=== PATIENT | female | born 1960 | race Caucasian/White ===

== ENCOUNTER 2023-09-10 11:09 | Emergency (ER) | payer OTHER, SELFPAY ==
[2023-09-10] VITALS (12 sets, daily range): BP systolic 119–141; BP diastolic 67–81; PULSE 53–71; RESP 18; TEMP 36.3; O2SAT 96–100; BMI 19.0
--- NOTE | 2023-09-10 11:37 | CRLHL7_ITS ---
For Patients: As a result of the Century Cures Act, medical imaging exams and procedure reports are released immediately into your electronic medical record. You may view this report before your referring provider. If you have questions, please contact your health care provider. CLINICAL HISTORY: Acute neurological deficit. TECHNIQUE: CTA neck with contrast bolus tracking. 3D angiographic rendering using maximum intensity projection (MIP) and images permanently archived. COMPARISON: None available. FINDINGS: The great vessels are patent. The common carotid arteries are patent. The proximal ICAs are patent without signficant stenoses by NASCET criteria. The more distal cervical ICAs are patent. The origins of the vertebral arteries are patent. The cervical segments of the vertebral arteries are patent. IMPRESSION: Patent cervical arterial vasculature without hemodynamically significant luminal stenosis. Please note that all CT scans at this facility use dose modulation, iterative reconstruction, and/or weight-based dosing when appropriate to reduce radiation dose to as low as reasonably achievable. Dictated by Stanley Metcalf MD @ 09/10/2023 1:47:13 PM (Electronically Signed)
--- NOTE | 2023-09-10 11:37 | CRLHL7_ITS ---
For Patients: As a result of the Century Cures Act, medical imaging exams and procedure reports are released immediately into your electronic medical record. You may view this report before your referring provider. If you have questions, please contact your health care provider. CLINICAL HISTORY: Acute neurological deficit. TECHNIQUE: CTA head with contrast bolus tracking. 3D angiographic rendering using maximum intensity projection (MIP) and images permanently archived. COMPARISON: None available. FINDINGS: The petrous, cavernous, and supraclinoid segments of the internal carotid arteries are patent. The anterior and middle cerebral arteries are patent. The anterior communicating artery is visualized and is within normal limits. The intracranial vertebral arteries, basilar trunk, and posterior cerebral arteries are patent. No intracranial proximal large vessel occlusion or flow-limiting luminal stenosis. No evidence of cerebral aneurysm. No findings to suggest an arterial-venous shunting lesion. The major dural venous sinuses and deep venous system are patent. IMPRESSION: No intracranial proximal large vessel occlusion, flow-limiting luminal stenosis, or cerebral aneurysm. Please note that all CT scans at this facility use dose modulation, iterative reconstruction, and/or weight-based dosing when appropriate to reduce radiation dose to as low as reasonably achievable. Dictated by Stanley Metcalf MD @ 09/10/2023 1:59:16 PM (Electronically Signed)
--- NOTE | 2023-09-10 11:54 | ED_ITS ---
HPI - General Adult General Date Seen: 09/10/23 Chief complaint: Headache/Migraine Stated complaint: Legs weak this am, headache Time Seen by Provider: 09/10/23 11:25 Source: patient Mode of arrival: ambulatory Limitations: no limitations History of Present Illness HPI narrative: patient is 63-year-old female with no pertinent medical problem presenting to the emergency department for a headache and bilateral leg weakness. She states she woke up this morning and tried to go to the bathroom and noticed her legs felt very weak and she needed to support herself against the wall to get to the bathroom. She then returned to her bed and she states weakness persisted for about 30 minutes to an all were in has now since completely resolved. She had no associated numbness at this time. She does states she was having word- finding issues. She states she typically does have word-finding problems but this was much worse than normal. At that time she also had a headache diffusely across her head. Now the headache is just behind the right eye which she says she has had before. She does states she has glaucoma but it is under control at this time. She went to urgent care and a CT scan of the head done which did show 1 concerning abnormality which they were not sure was artifact or not so was sent to us for a CTA. She states that this time symptoms have all fully resolved other than the improving headache. She states she believes the headache is most likely from her anxiety at this time. Denies fevers, chills, chest pain, shortness of breath, vision changes, abdominal pain. Related Data Home Medications Medication Instructions Recorded Confirmed No Known Home Medications 09/10/23 09/10/23 Allergies Allergy/AdvReac Type Severity Reaction Status Date / Time No Known Drug Allergies Allergy Verified 09/10/23 11:23 Review of Systems Status of ROS: Reports: 10 or more systems reviewed and unremarkable except as noted in History and below [facility] Social History Smoking Status: Former smoker How often do you have a drink containing alcohol: 4 or more times a week How many standard drinks containing alcohol do you have on a typical day: 3 or 4 How often do you have six or more drinks on one occasion: Less than monthly AUDIT-C Alcohol total score: 6 Non-prescribed substance use: marijuana (any form) Exam Narrative: Exam Narrative: Const: Well-nourished, Well-developed, in mild distress Eyes: PERRL, no conjunctival injection, and symmetrical lids HENT: Atraumatic external nose and ears. Moist mucous membranes. Neck: Symmetric, trachea midline, No thyromegaly. CVS: RRR, No murmurs or gallops. Peripheral pulses 2+ and equal in all extremities RESP: Unlabored respiratory effort. Clear to auscultation bilaterally. GI: Nontender/Nondistended, No rebound or guarding. MSK:Extremities w/o deformity, Normal Active ROM Skin: Warm, Dry. No rashes or lesions. Neuro: Normal Muscle tone, Cranial nerves 2-12 grossly intact, normal [id number], normal [id number], normal gait, normal strength 5/5 upper lower extremities bilaterally, normal sensation upper and lower extremities bilaterally, normal rapid alternating movements. NIH stroke scale 0 Psych: Awake, Alert, & Oriented x3. Appropriate mood and affect. Const: Vital Signs, click to edit/add: Vital Signs - 24 hr 09/10/23 11:20 09/10/23 11:59 09/10/23 12:00 Temperature 97.3 F L Pulse Rate 57 L 58 L Pulse Rate [Right Pulse Oximeter] 68 Respiratory Rate 18 Blood Pressure 126/67 Blood Pressure [Ri ght Upper Arm] 120/73 Pulse Oximetry 100 98 99 Oxygen Delivery Me thod Room Air 09/10/23 12:02 09/10/23 12:15 09/10/23 12:30 Temperature Pulse Rate 58 L 57 L 58 L Pulse Rate [Right Pulse Oximeter] Respiratory Rate Blood Pressure 131/73 Blood Pressure [Ri ght Upper Arm] Pulse Oximetry 97 98 99 Oxygen Delivery Me thod 09/10/23 12:32 09/10/23 12:45 09/10/23 13:00 Temperature Pulse Rate 63 71 59 L Pulse Rate [Right Pulse Oximeter] Respiratory Rate Blood Pressure 141/78 H Blood Pressure [Ri ght Upper Arm] Pulse Oximetry 98 96 97 Oxygen Delivery Me thod 09/10/23 13:02 09/10/23 13:15 Temperature Pulse Rate 59 L 53 L Pulse Rate [Right Pulse Oximeter] Respiratory Rate Blood Pressure 119/75 Blood Pressure [Ri ght Upper Arm] Pulse Oximetry 98 97 Oxygen Delivery Me thod Course Vital Signs Vital signs: Initial Vital Signs Temperature 97.3 F L 09/10/23 11:20 Temperature Source Temporal Artery Scan 09/10/23 11:20 Pulse Rate 68 09/10/23 11:20 Respiratory Rate 18 09/10/23 11:20 Blood Pressure 120/73 09/10/23 11:20 Blood Pressure Mean 88 09/10/23 11:20 Blood Pressure Position Sitting 09/10/23 11:20 Pulse Oximetry 100 09/10/23 11:20 Oxygen Delivery Method Room Air 09/10/23 11:20 Vital Signs Temperature 97.3 F L 09/10/23 11:20 Pulse Rate 68 09/10/23 11:20 Respiratory Rate 18 09/10/23 11:20 Blood Pressure 120/73 09/10/23 11:20 Pulse Oximetry 100 09/10/23 11:20 Oxygen Delivery Method Room Air 09/10/23 11:20 Temperature 97.3 F L 09/10/23 11:20 Pulse Rate 53 L 09/10/23 13:15 Respiratory Rate 18 09/10/23 11:20 Blood Pressure 119/75 09/10/23 13:02 Pulse Oximetry 97 09/10/23 13:15 Oxygen Delivery Method Room Air 09/10/23 11:20 Medications Administered Medications: Discontinued Medications Generic Name Dose Route Start Last Admin Trade Name Freq PRN Reason Stop Dose Admin Diphenhydramine HCl 25 mg 09/10/23 11:37 09/10/23 12:41 Diphenhydramine 50 Mg/Ml Inj IVP 09/10/23 11:38 Not Given ONCE ONE Lactated Ringer's 1,000 mls @ 1,000 mls/hr 09/10/23 11:37 09/10/23 13:59 Lactated Ringers 1000 Ml IV 09/10/23 12:36 Infused .Q1H ONE Infusion Ketorolac Tromethamine 15 mg 09/10/23 11:37 09/10/23 12:21 Ketorolac 15 Mg/Ml Inj IVP 09/10/23 11:38 Not Given ONCE ONE Ketorolac Tromethamine 15 mg 09/10/23 14:06 09/10/23 14:24 Ketorolac 15 Mg/Ml Inj IVP 09/10/23 14:07 15 mg ONCE ONE Administration Loratadine 10 mg 09/10/23 12:36 09/10/23 13:34 Loratadine 10 Mg Tablet PO 09/10/23 12:37 10 mg ONCE ONE Administration Metoclopramide HCl 10 mg 09/10/23 11:58 09/10/23 12:23 Metoclopramide Hcl 5 Mg/Ml Inj IVP 09/10/23 11:59 10 mg ONCE ONE Administration Medical Decision Making MDM Narrative Medical decision making narrative: patient is 63 year old presenting to the emergency department for a headache and abnormal head CT after and short episode of leg weakness and some aphasia. The weakness has resolved and there was never any numbness. The headache is also improved. Her symptoms are concerning for possible TIA. I did review her records at the urgent care and they believed the lesion seems most likely artifact not definitively rule out other findings and recommended a CTA. Patient will be given a migraine cocktail for her headache. CTA results returns for no concerning abnormalities. I spoke to Dr. Potter of [facility] in with her symptoms he recommends MRI brain, cervical spine, lumbar spine. He states that these results are normal patient can be discharged home with outpatient follow-up. She was given Toradol for headache also and symptoms have all now fully resolved. MRI returned showing no concerning abnormalities. She is completely asymptomatic be discharged home. She agrees with this plan. Lab Data Labs: Lab Results 09/10/23 Range/Units 12:07 WBC 5.11 (4.50-11.00) K/uL RBC 4.00 (4.00-5.20) m/uL Hgb 11.8 L (12.0-16.0) gm/dL Hct 36.4 (33.0-51.0) % MCV 91 (80-100) fL MCH 30 (26-34) pg MCHC 32 (32-36) gm/dL RDW Coeff of Bharat 13.6 (11.5-15.5) % Plt Count 301 (140-440) K/uL Neut % (Auto) 53.2 (42.0-72.0) % Lymph % (Auto) 34.8 (20-44) % Alexander % (Auto) 10.2 (0.0-11.0) % Eos % (Auto) 1.0 (0.0-7.0) % Baso % (Auto) 0.6 (0.0-3.0) % Neut # (Auto) 2.72 (1.7-7.0) K/uL Lymph # (Auto) 1.78 (0.90-2.90) K/uL Alexander # (Auto) 0.50 (0.00-0.90) K/UL Eos # (Auto) 0.05 (0.00-0.50) K/uL Baso # (Auto) 0.03 (0.00-0.30) K/uL Abs Immat Gran (auto) 0.01 (0.00-0.30) K/uL Imm/Tot Granulo (auto) 0.2 % Sodium 136 (135-149) mmol/L Potassium 4.0 (3.6-5.1) mmol/L Chloride 102 (96-114) mmol/L Carbon Dioxide 29 (20-32) mmol/L Anion Gap 5 L (7-15) mEq/L BUN 15 (7-30) mg/dL Creatinine 0.5 (0.5-1.5) mg/dL Estimated Creat Clear 48.65 Estimated GFR 105 ml/min Glucose 105 (60-115) mg/dL Calcium 9.1 (8.4-10.6) mg/dL Magnesium 2.4 (1.5-2.6) mg/dL Total Bilirubin 0.6 (0.1-1.5) mg/dL AST 22 (12-35) U/L ALT 12 (4-35) U/L Alkaline Phosphatase 50 (40-150) U/L Troponin I < 0.01 L (0.01-0.04) ng/mL Total Protein 7.1 (6.0-8.3) g/dL Albumin 4.5 (3.3-5.0) g/dL Imaging Data CTA head: Radiologist's impression: No intracranial proximal large vessel occlusion, flow-limiting luminal stenosis, or cerebral aneurysm. Please note that all CT scans at this facility use dose modulation, iterative reconstruction, and/or weight-based dosing when appropriate to reduce radiation dose to as low as reasonably achievable. Dictated by Stanley Metcalf MD @ 09/10/2023 1:59:16 PM CTA neck: Radiologist's impression: Patent cervical arterial vasculature without hemodynamically significant luminal stenosis. Please note that all CT scans at this facility use dose modulation, iterative reconstruction, and/or weight-based dosing when appropriate to reduce radiation dose to as low as reasonably achievable. Dictated by Stanley Metcalf MD @ 09/10/2023 1:47:13 PM MRI brain: Radiologist's impression: 1. No acute intracranial abnormality. 2. Mild global parenchymal volume loss and chronic small vessel ischemic changes. 3. Scattered paranasal sinus mucosal thickening and small bilateral mastoid effusions. Dictated by Mike Arroyo MD @ 09/10/2023 4:55:49 PM MRI cervical spine: Radiologist's impression: 1. No high-grade spinal canal or neural foraminal stenosis. 2. Normal in signal intensity of the cervical spinal cord. 3. Multilevel intervertebral disc height loss most pronounced from C4-C7. 4. Mild bilateral C5-C6 and right C6-C7 neural foraminal narrowing. 5. Incidentally noted 4 mm left thyroid nodule and bilateral mastoid effusions. Dictated by Mike Arroyo MD @ 09/10/2023 4:51:43 PM MRI lumbar spine: Radiologist's impression: 1. S-shaped thoracolumbar scoliosis with lower lumbar spondylosis as detailed. 2. At L5-S1, anteriorly directed right facet joint synovial cyst encroaches upon the exiting right L5 nerve root without imaging evidence of impingement. Mild-moderate bilateral neural foraminal narrowing. 3. No significant spinal canal stenosis. No acute osseus abnormality. Dictated by Jasmin Fuentes MD @ 09/10/2023 4:54:48 PM ECG Data Attestation: I personally reviewed and interpreted this ECG as follows: Interpretation: Sinus bradycardia rate 55 beats per minute, normal intervals, normal axis, no ST or T-wave abnormalities Discharge Plan Discharge Clinical Impression: Headache Qualifiers: Headache type: unspecified Headache chronicity pattern: acute headache Intractability: not intractable Qualified Code(s): R51.9 - Headache, unspecified Patient Disposition: Home, Self-Care Condition: Improved Instructions: Acute Headache (DC) Additional Instructions: I am unsure why he developed the symptoms below imaging shows no concerning abnormalities. Recommend he follow-up with your primary care provider and speak to him about possible follow-up with Neurology. Return Prescriptions: No Action No Known Home Medications Follow Up/Referrals: Andra Sood PA-C [Primary Care Provider] - Stand Alone Forms: [employer] Info Instructions
[2023-09-10 12:15] LABS: Basophils Absolute Auto 0.03 K/uL (0.00-0.30); Basophils Percent Auto 0.6 % (0.0-3.0); Eosinophils Absolute Auto 0.05 K/uL (0.00-0.50); Hematocrit 36.4 % (33.0-51.0); Hemoglobin* 11.8 gm/dL (12.0-16.0); Immature Granulocytes Abs Auto 0.01 K/uL (0.00-0.30); Immature Granulocytes Pct Auto 0.2 %; Lymphocytes Absolute Auto 1.78 K/uL (0.90-2.90); Lymphocytes Percent Auto 34.8 % (20-44); Mean Corpuscular HGB Conc 32 gm/dL (32-36); Mean Corpuscular Hemoglobin 30 pg (26-34); Mean Corpuscular Volume 91 fL (80-100); Monocytes Percent Auto 10.2 % (0.0-11.0); Neutrophils Absolute Auto 2.72 K/uL (1.7-7.0); Neutrophils Percent Auto 53.2 % (42.0-72.0); Platelet Count* 301 K/uL (140-440); RDW Coefficient of Variation % 13.6 % (11.5-15.5); White Blood Count* 5.11 K/uL (4.50-11.00)
[2023-09-10 12:23] LABS: Slide Review Reflex No
[2023-09-10] MEDS: LACTATED RINGERS 1000 ML 1,000 ML IV (12:23)
[2023-09-10] MEDS: METOCLOPRAMIDE HCL 5 MG/ML INJ 10 MG IVP (12:23)
[2023-09-10 12:31] LABS: Albumin* 4.5 g/dL (3.3-5.0); Chloride* 102 mmol/L (96-114); Sodium* 136 mmol/L (135-149)
[2023-09-10 12:33] LABS: Bilirubin Total* 0.6 mg/dL (0.1-1.5); Creatinine* 0.5 mg/dL (0.5-1.5); Est. Creatinine Clearance* 48.65; Estimated Glomerular Filt Rate 105 ml/min
[2023-09-10 12:34] LABS: Alanine Aminotransferase* 12 U/L (4-35); Alkaline Phosphatase* 50 U/L (40-150); Anion Gap 5 mEq/L (7-15); Aspartate Amino Transferase* 22 U/L (12-35); Blood Urea Nitrogen* 15 mg/dL (7-30); Calcium* 9.1 mg/dL (8.4-10.6); Carbon Dioxide* 29 mmol/L (20-32); Glucose* 105 mg/dL (60-115); Total Protein* 7.1 g/dL (6.0-8.3)
[2023-09-10 12:35] LABS: Magnesium* 2.4 mg/dL (1.5-2.6)
[2023-09-10 12:47] LABS: Troponin I* < 0.01 ng/mL (0.01-0.04)
[2023-09-10] MEDS: LORATADINE 10 MG TABLET PO (13:34)
--- NOTE | 2023-09-10 14:17 | CRLHL7_ITS ---
For Patients: As a result of the Century Cures Act, medical imaging exams and procedure reports are released immediately into your electronic medical record. You may view this report before your referring provider. If you have questions, please contact your health care provider. INDICATION: Lower leg weakness. TECHNIQUE: Multisequence MRI of the cervical spine without contrast. COMPARISON: None available. FINDINGS: Degenerative straightening of the normal cervical lordosis. Posterior aspects of the vertebral bodies are aligned. Vertebral body heights are maintained. Multilevel intervertebral disc height loss is most pronounced from C4-C7. Bone marrow signal intensity is within normal limits. The cervical spinal cord is normal in signal intensity. Bilateral mastoid effusions and a 4 mm left thyroid nodule are incidentally noted. Evaluation of the individual levels demonstrates: C2-C3 and C3-C4: No significant spinal canal or neural foraminal stenosis. C4-C5: Posterior disc osteophyte complex indenting the ventral thecal sac. No significant spinal canal or neural foraminal stenosis. C5-C6: Posterior disc osteophyte complex indenting the ventral thecal sac. No significant spinal canal stenosis. Mild bilateral neural foraminal narrowing as sequela of uncovertebral joint hypertrophy. C6-C7: Posterior disc osteophyte complex indenting the ventral thecal sac. Mild right neural foraminal narrowing from compatible vertebral and facet hypertrophy. No significant left neural foraminal narrowing. C7-T1: No significant spinal canal or neural foraminal stenosis. IMPRESSION: 1. No high-grade spinal canal or neural foraminal stenosis. 2. Normal in signal intensity of the cervical spinal cord. 3. Multilevel intervertebral disc height loss most pronounced from C4-C7. 4. Mild bilateral C5-C6 and right C6-C7 neural foraminal narrowing. 5. Incidentally noted 4 mm left thyroid nodule and bilateral mastoid effusions. Dictated by Mike Arroyo MD @ 09/10/2023 4:51:43 PM (Electronically Signed)
--- NOTE | 2023-09-10 14:17 | CRLHL7_ITS ---
For Patients: As a result of the Century Cures Act, medical imaging exams and procedure reports are released immediately into your electronic medical record. You may view this report before your referring provider. If you have questions, please contact your health care provider. INDICATION: Leg weakness. TECHNIQUE: Multisequence multiplanar MRI of the head without contrast. COMPARISON: None available. FINDINGS: No evidence of acute ischemia. Scattered foci of T2/FLAIR hyperintensity in the periventricular and subcortical white matter, nonspecific, but typical of mild chronic small vessel ischemic changes. Mild global parenchymal volume loss with ex-vacuo prominence of the supratentorial ventricles. Flow voids of the larger intracranial arteries are patent. Probable hemangioma within the right frontal calvarium. Evidence of prior cataract surgery. Scattered paranasal sinus mucosal thickening and small bilateral mastoid effusions. IMPRESSION: 1. No acute intracranial abnormality. 2. Mild global parenchymal volume loss and chronic small vessel ischemic changes. 3. Scattered paranasal sinus mucosal thickening and small bilateral mastoid effusions. Dictated by Mike Arroyo MD @ 09/10/2023 4:55:49 PM (Electronically Signed)
--- NOTE | 2023-09-10 14:17 | CRLHL7_ITS ---
For Patients: As a result of the Century Cures Act, medical imaging exams and procedure reports are released immediately into your electronic medical record. You may view this report before your referring provider. If you have questions, please contact your health care provider. Indication: Lower leg weakness Technique: Multiplanar, multisequence, MRI of the lumbar spine, obtained without contrast. Comparison: No relevant comparison studies available at this institution. Findings: S-shaped thoracolumbar scoliosis with preserved lumbar lordosis. No significant spondylolisthesis. Vertebral body heights are maintained. Unremarkable bone marrow signal. Conus medullaris terminates at L2. No suspicious findings identified in the paraspinal soft tissues. Included SI joints are unremarkable. T12-L1, L1-L2: No significant neural foraminal or spinal canal stenosis. L2-L3: Minimal diffuse disc bulge. No significant neural foraminal or spinal canal stenosis. L3-L4: Mild diffuse disc bulge with left foraminal annular fissure, mild facet arthropathy. No significant neural foraminal or spinal canal stenosis. L4-L5: Mild diffuse disc bulge with left subarticular to foraminal annular fissure and moderate facet arthropathy with left greater than right facet joint effusions. No significant neural foraminal or spinal canal stenosis. L5-S1: Mild diffuse disc bulge, moderately advanced facet arthropathy with facet joint effusions. Anteriorly directed right facet joint synovial cyst encroaches upon the exiting right L5 nerve root without imaging evidence of overt impingement. Incidental posteriorly directed left facet joint synovial cyst. Mild-moderate bilateral neural foraminal narrowing. No spinal canal stenosis. Impression: 1. S-shaped thoracolumbar scoliosis with lower lumbar spondylosis as detailed. 2. At L5-S1, anteriorly directed right facet joint synovial cyst encroaches upon the exiting right L5 nerve root without imaging evidence of impingement. Mild-moderate bilateral neural foraminal narrowing. 3. No significant spinal canal stenosis. No acute osseus abnormality. Dictated by Jasmin Fuentes MD @ 09/10/2023 4:54:48 PM (Electronically Signed)
[2023-09-10] MEDS: KETOROLAC 15 MG/ML inj IVP (14:24)
== END 2023-09-10 17:30 | disposition home or self-care (01) ==
PROVIDERS: Emergency Provider Student in an Organized Health Care Education/Training Program; PCP Student in an Organized Health Care Education/Training Program
DX: R51.9 Headache, unspecified (principal)
CPT/HCPCS: 36415; 70496; 70498; 70551; 72141; 72148; 80053; 83735; 84484; 85025; 93005; 96361; 96374; 96375; 99283; 99284; 99285; J1200; J1885; J2765; J7120; Q9967

== ENCOUNTER 2023-09-20 15:18 | Outpatient (RCR) | payer OTHER, SELFPAY | END 2024-01-18 23:59 | disposition home or self-care (01) | PROVIDERS: PCP Student in an Organized Health Care Education/Training Program; Visit Provider Family Medicine | DX: R42 Dizziness and giddiness (principal); Z51.89 Encounter for other specified aftercare ==